=== PATIENT | male | born 1955 | race Caucasian/White ===

== ENCOUNTER 2021-01-12 08:00 | Day surgery (SDC) | payer MEDICARE ==
[2021-01-12] VITALS (10 sets, daily range): BP systolic 103–166; BP diastolic 47–76
[~2021-01-12] VITALS: Ht 172.7 cm; Wt 83.0 kg
[2021-01-12] MEDS ORDERED: CETI10CA19 PO (08:40)
[2021-01-12] MEDS ORDERED: ASCO-139 PO (08:40)
[2021-01-12] MEDS ORDERED: TURM500C4 PO (08:40)
[2021-01-12] MEDS ORDERED: ASPI-1265 PO (08:40)
[2021-01-12] MEDS ORDERED: FLEC100T PO (08:40)
[2021-01-12] MEDS ORDERED: IBUP-2697 PEG (08:40)
[2021-01-12] MEDS ORDERED: LIDOcaine/PRILOcaine 5gm cream TP ONE (08:45)
[2021-01-12] MEDS ORDERED: normal saline 1,000 ML IV SCH (08:45)
[2021-01-12] MEDS ORDERED: diphenhydrAMINE 25mg capsule PO PRN (08:45)
[2021-01-12 09:23] LABS: BASOPHILS % (AUTO) 0.6 % (0-1); EOSINOPHILS # (AUTO) 0.2 X10'3 (0-0.9); EOSINOPHILS % (AUTO) 3.7 % (0-6); HEMATOCRIT 39.3 % (42.0-52.0); HEMOGLOBIN 13.3 g/dl (14.0-17.9); LYMPHOCYTES # (AUTO) 2.3 X10'3 (1.1-4.8); LYMPHOCYTES % (AUTO) 37.6 % (21-51); MEAN CORPUSCULAR HEMOGLOBIN 32.4 PG (27.0-31.0); MEAN CORPUSCULAR VOLUME 95.5 FL (78-98); MEAN PLATELET VOLUME 8.9 FL (7.4-10.4); MONOCYTES # (AUTO) 0.5 X10'3 (0-0.9); MONOCYTES % (AUTO) 8.2 % (2-12); NEUTROPHILS # (AUTO) 3.1 X10'3 (1.8-7.7); NEUTROPHILS % (AUTO) 49.9 % (42-75); PLATELET COUNT 163 X10'3 (140-440); RED BLOOD COUNT 4.11 X10'6 (4.70-6.10); RED CELL DISTRIBUTION WIDTH 13.2 % (11.5-14.5); WHITE BLOOD COUNT 6.2 X10'3 (4.5-11.0)
[2021-01-12 09:48] LABS: ALBUMIN 3.7 G/DL (3.4-5.0); ANION GAP 7 (8-16); BLOOD UREA NITROGEN 16 MG/DL (7-18); BUN/CREATININE RATIO 18.2 (5.4-32.0); CALCIUM 8.8 MG/DL (8.5-10.1); CHLORIDE 107 MMOL/L (99-107); CREATININE 0.88 MG/DL (0.60-1.10); GLUCOSE 109 MG/DL (70-104); MAGNESIUM 2.3 MG/DL (1.5-2.4); POTASSIUM 4.4 MMOL/L (3.5-5.1); SODIUM 144 MMOL/L (135-145); TOTAL CARBON DIOXIDE 29.9 MMOL/L (24-32); eGFR 87 ML/MIN
[2021-01-12] MEDS ORDERED: LIDOcaine 1% (10mg/ml)w/preservative injection 20ml MDV ONE (10:09)
[2021-01-12] MEDS ORDERED: iohexol 350 MG/ML 50ML vial IV ONE (10:09)
[2021-01-12] MEDS ORDERED: iohexol 350MG/ML 100ml bottle IV ONE (10:09)
[2021-01-12] MEDS ORDERED: heparin 1,000unit/ml 10ml vial 10 ML ONE (10:09)
[2021-01-12] MEDS ORDERED: midazolam 1 mg/ML 2ml injection ONE ×2 (10:09→10:49)
[2021-01-12] MEDS ORDERED: fentaNYL/PF 50MCG/1 ML 2ML syringe ONE (10:09)
[2021-01-12] MEDS ORDERED: verapamil 2.5 mg/ml inj IV ONE (10:28)
[2021-01-12] MEDS ORDERED: nitroGLYCERIN-Tridil 50MG/D5W 250 ML IV ONE (10:28)
[2021-01-12] MEDS ORDERED: proCHLORperazine 10 MG/2 ml inj IV PRN (13:00)
[2021-01-12] MEDS ORDERED: acetaminophen 325mg tablet PO PRN (13:00)
[2021-01-12] MEDS ORDERED: OXAZEpam 15mg capsule PO PRN (13:00)
[2021-01-12] MEDS ORDERED: HYDROcodone/acetaminophen 5mg/325mg tablet PO PRN (13:00)
[2021-01-12] MEDS ORDERED: ondansetron/PF 4mg/2ml inj IV PRN (13:00)
[2021-01-12] MEDS ORDERED: HYDROcodone/acetaminophen 10/325mg tab PO PRN (13:00)
== END 2021-01-12 15:00 | disposition home or self-care (01) ==
LOC: SSTAY O 08:00
PROVIDERS: ATTEND Internal Medicine Cardiovascular Disease
DX: R94.39 Abnormal result of other cardiovascular function study (principal); I48.0 Paroxysmal atrial fibrillation; E78.00 Pure hypercholesterolemia, unspecified; I47.1 Supraventricular tachycardia; Z88.8 Allergy status to other drugs, medicaments and biological substances; Z79.899 Other long term (current) drug therapy; Z79.82 Long term (current) use of aspirin
CPT/HCPCS: 36415; 80048; 83735; 85025; 85610; 93005; 93458; 99152; C1769; C1894; J1644; J2001; J2250; J3010; J7030; Q0163; Q9967; 99153; A4620; A5120; A6258; J3490

== ENCOUNTER 2021-02-19 11:18 | Day surgery (SDC) | payer MEDICARE ==
[2021-02-12 16:07] LABS: BASOPHILS # (AUTO) 0.1 X10'3 (0-0.2); BASOPHILS % (AUTO) 0.6 % (0-1); EOSINOPHILS # (AUTO) 0.2 X10'3 (0-0.9); EOSINOPHILS % (AUTO) 1.8 % (0-6); LYMPHOCYTES # (AUTO) 4.1 X10'3 (1.1-4.8); LYMPHOCYTES % (AUTO) 36.9 % (21-51); MEAN CORPUSCULAR HEMOGLOBIN 31.7 PG (27.0-31.0); MEAN CORPUSCULAR HGB CONC 33.9 g/dL (33.0-36.5); MEAN CORPUSCULAR VOLUME 93.6 FL (78-98); MEAN PLATELET VOLUME 8.2 FL (7.4-10.4); MONOCYTES # (AUTO) 0.9 X10'3 (0-0.9); MONOCYTES % (AUTO) 7.6 % (2-12); NEUTROPHILS % (AUTO) 53.1 % (42-75); PRE OP HEMOGLOBIN 15.3 g/dL (14.0-17.9); PRE OP PLATELET COUNT 190 X10'3 (140-440); RED BLOOD COUNT 4.81 X10'6 (4.70-6.10); RED CELL DISTRIBUTION WIDTH 12.8 % (11.5-14.5)
[2021-02-12 16:17] LABS: ALBUMIN/GLOBULIN RATIO 1.1 (1.1-1.5); ALKALINE PHOSPHATASE 47 IU/L (46-116); BLOOD UREA NITROGEN 17 MG/DL (7-18); BUN/CREATININE RATIO 18.7 (5.4-32.0); CALCIUM 8.8 MG/DL (8.5-10.1); CHLORIDE 103 MMOL/L (99-107); CREATININE 0.91 MG/DL (0.60-1.10); PRE OP ALT 55 U/L (30-65); PRE OP ANION GAP 9 (8-16); PRE OP AST 28 U/L (10-37); PRE OP BILIRUB, TOTAL 0.6 MG/DL (0.0-1.0); PRE OP GLUCOSE 95 MG/DL (70-104); PRE OP POTASSIUM 4.2 MMOL/L (3.4-5.1); PRE OP SODIUM 139 MMOL/L (135-145); TOTAL CARBON DIOXIDE 27.3 MMOL/L (24-32); TOTAL PROTEIN 7.6 G/DL (6.4-8.2); eGFR 84 ML/MIN
[2021-02-19] VITALS (7 sets, daily range): BP systolic 128–157; BP diastolic 66–86
[~2021-02-19] VITALS: Ht 172.7 cm; Wt 78.5 kg
[~2021-02-19 11:18] MED LIST: ACET-2615 PO; ASPI-1265 PO; CETI10CA19 PO; FLEC100T PO; cefazolin/dext.iso 2gm/50ml 50 ML IV ONE; famotidine 20mg tablet PO ONE; meperidine/PF 25mg/ml syringe IV PRN; morphine 2 MG/ML inj. syringe IV PRN; morphine 4 MG/ML inj SYRINge IV PRN; ondansetron/PF 4mg/2ml inj IV PRN; proCHLORperazine 10 MG/2 ml inj IV PRN; ringers solution, lacted 1,000 ML IV SCH
[2021-02-19] MEDS ORDERED: BUPIVAcaine/PF 2.5 mg/ml (0.25%) 30ml vial ONE (12:03)
[2021-02-19] MEDS ORDERED: fentaNYL/PF 50MCG/1 ML 2ML syringe ONE (14:14)
[2021-02-19] MEDS ORDERED: midazolam 1 mg/ML 2ml injection ONE (14:15)
[2021-02-19] MEDS ORDERED: ondansetron/PF 4mg/2ml inj ONE (14:21)
[2021-02-19] MEDS ORDERED: propofol inj 20 ML IV ONE (14:21)
[2021-02-19] MEDS ORDERED: LIDOcaine 2% (20mg/ml) 5ml vial ONE (14:21)
[2021-02-19] MEDS ORDERED: dexamethasone sod phosphate 4mg/ml inj. ONE (14:21)
[2021-02-19] MEDS ORDERED: ePHEDrine 50MG/ML INJ. ONE ×2 (14:23→14:27)
[2021-02-19] MEDS ORDERED: 0.9 % SODIUM CHLORIDE 10 ML VIAL ONE (14:41)
[2021-02-19] MEDS ORDERED: morphine 10mg/ml inj. ONE (15:19)
[2021-02-19] MEDS ORDERED: ketorolac trometh. 30mg/ml inj. ONE (15:26)
--- NOTE | 2021-02-19 15:40 | NUR ---
Received from OR via , accompanied by Anesthesiologist DR SANDY and report given by Anesthesiolgist. AWAKENS TO VOICE. VITALS STABLE. DRESSING DI. YARA PAIN. LT FOOT COOL AND PINK.
[2021-02-19] MEDS ORDERED: non-formulary drug (Acetaminophen (Tylenol Extra Strength) 1 TAB) PO PRN (16:05)
--- NOTE | 2021-02-19 16:50 | NUR ---
AWAKE AND ORIENTED. VITALS STABLE. DRESSING DI. YARA PAIN. HOME WITH HIS AT THIS TIME.
[2021-02-19] MEDS ORDERED: flecainide 50mg tablet PO SCH (20:00)
[2021-02-20] MEDS ORDERED: cetirizine 10mg tablet PO SCH (08:00)
[2021-02-20] MEDS ORDERED: aspirin 81mg tab.chew PO SCH (08:00)
== END 2021-02-19 16:50 | disposition home or self-care (01) ==
LOC: PAS 11:18
PROVIDERS: ATTEND Orthopaedic Surgery
DX: S83.242A Other tear of medial meniscus, current injury, left knee, initial encounter (principal); M23.42 Loose body in knee, left knee; M94.262 Chondromalacia, left knee; M19.029 Primary osteoarthritis, unspecified elbow; M17.10 Unilateral primary osteoarthritis, unspecified knee; I48.91 Unspecified atrial fibrillation; Z87.891 Personal history of nicotine dependence; Z98.890 Other specified postprocedural states; Z98.818 Other dental procedure status; Z79.82 Long term (current) use of aspirin; Z79.899 Other long term (current) drug therapy; Z20.822 Contact with and (suspected) exposure to COVID-19; X58.XXXA Exposure to other specified factors, initial encounter; Y93.89 Activity, other specified; Y92.89 Other specified places as the place of occurrence of the external cause; Y99.8 Other external cause status
CPT/HCPCS: 29881; 36415; 71046; 80053; 82948; 85025; J1100; J1885; J2001; J2250; J2270; J2405; J2704; J3010; J3490; U0003; U0005; Z7512; A4618; A6449; A7000; J7120

== ENCOUNTER 2023-03-01 07:53 | Inpatient (IN) | payer MEDICARE ==
[2023-02-22 15:22] LABS: BILIRUBIN,URINE NEGATIVE (Neg); CLARITY,URINE CLEAR (Clear); COLOR,URINE YELLOW (Yellow); GLUCOSE, URINE NEGATIVE (Neg); KETONES,URINE NEGATIVE (Neg); LEUKOCYTE ESTERASE ,URINE NEGATIVE (Neg); NITRITES, URINE NEGATIVE (Neg); OCCULT BLOOD,URINE NEGATIVE (Neg); PH,URINE 5.5 (4.8-8.0); PROTEIN,URINE NEGATIVE (Neg); UROBILINOGEN,URINE 0.2 E.U/dL (0.2-1.0)
[2023-02-22 15:23] LABS: BASOPHILS # (AUTO) 0.1 X10'3 (0-0.2); BASOPHILS % (AUTO) 0.7 % (0-1); EOSINOPHILS # (AUTO) 0.1 X10'3 (0-0.9); EOSINOPHILS % (AUTO) 1.5 % (0-6); LYMPHOCYTES # (AUTO) 3.7 X10'3 (1.1-4.8); LYMPHOCYTES % (AUTO) 38.4 % (21-51); MEAN CORPUSCULAR HEMOGLOBIN 32.3 PG (27.0-31.0); MEAN CORPUSCULAR HGB CONC 33.9 g/dL (33.0-36.5); MEAN CORPUSCULAR VOLUME 95.3 FL (78-98); MEAN PLATELET VOLUME 8.5 FL (7.4-10.4); MONOCYTES # (AUTO) 0.6 X10'3 (0-0.9); MONOCYTES % (AUTO) 6.6 % (2-12); NEUTROPHILS % (AUTO) 52.8 % (42-75); PRE OP HEMATOCRIT 42.6 % (42.0-52.0); PRE OP HEMOGLOBIN 14.4 g/dL (14.0-17.9); PRE OP PLATELET COUNT 187 X10'3 (140-440); PRE OP WHITE BLOOD COUNT 9.5 10'3 (4.8-10.8); RED BLOOD COUNT 4.47 X10'6 (4.70-6.10); RED CELL DISTRIBUTION WIDTH 13.2 % (11.5-14.5)
[2023-02-22 15:26] LABS: UA COLLECTION TYPE CLN CATCH MIDSTREAM
[2023-02-22 15:34] LABS: PRE OP PROTIME 10.3 SECONDS (9.0-12.0)
[2023-02-22 15:39] LABS: ALBUMIN 4.2 G/DL (3.4-5.0); ALBUMIN/GLOBULIN RATIO 1.5 (1.1-1.5); ALKALINE PHOSPHATASE 55 IU/L (46-116); BLOOD UREA NITROGEN 20 MG/DL (7-18); BUN/CREATININE RATIO 24.1 (10.0-20.0); CALCIUM 9.1 MG/DL (8.5-10.1); CHLORIDE 103 MMOL/L (99-107); CREATININE 0.83 MG/DL (0.60-1.10); PRE OP ALT 63 U/L (30-65); PRE OP ANION GAP 9 (8-16); PRE OP AST 36 U/L (10-37); PRE OP BILIRUB, TOTAL 0.3 MG/DL (0.0-1.0); PRE OP GLUCOSE 95 MG/DL (70-104); PRE OP POTASSIUM 4.1 MMOL/L (3.4-5.1); PRE OP SODIUM 138 MMOL/L (135-145); TOTAL CARBON DIOXIDE 26.5 MMOL/L (24-32); eGFR > 90 ML/MIN
[2023-03-01] VITALS (18 sets, daily range): BP systolic 109–161; BP diastolic 57–77; PULSE 51–75; RESP 12–16; TEMP 97.7–98.6; O2SAT 89–98
[~2023-03-01] VITALS: Ht 172.7 cm; Wt 79.4 kg
[~2023-03-01 07:53] MED LIST changes: -ACET-2615 PO; -ASPI-1265 PO; -CETI10CA19 PO; +DICL387C TOP; +EZET10TA6 PO; +NAPR220T67 PO; +cefazolin 2gm/D5W 100mL 100 ML IV ONE; -cefazolin/dext.iso 2gm/50ml 50 ML IV ONE; -meperidine/PF 25mg/ml syringe IV PRN; -morphine 2 MG/ML inj. syringe IV PRN; -morphine 4 MG/ML inj SYRINge IV PRN; -ondansetron/PF 4mg/2ml inj IV PRN; -proCHLORperazine 10 MG/2 ml inj IV PRN; +tranexamic acid inj. 1,000 MG in normal saline IV soln 100ML IV ONE
--- NOTE | 2023-03-01 08:00 | NUR ---
TOTAL JOINT CHARTING: PT COMPLETED HIBICLENS SHOWERS X5 DAYS. MD DOES NOT ORDER MUPIROCIN OINTMENT. CSM'S WNL. RIGHT RADIAL PULSE STRONG. Addendum: 03/01/23 at 0925 by Stefani De RN Amended: Links added.
--- NOTE | 2023-03-01 09:30 | NUR ---
PT RESTING COMFORTABLY WITH AT THE BEDSIDE. IV PATENT. AWAITING SURGERY. PT REPORT GIVEN TO MICHA VERMA WHO ASSUMES PT CARE.
[2023-03-01] MEDS ORDERED: methylene blue (5mg/ml) 50mg/10ml ampul IV ONE ×3 (09:53→11:52)
[2023-03-01] MEDS ORDERED: vancomycin 1,000mg inj ONE (09:53)
[2023-03-01] MEDS ORDERED: bisacodyl 10mg suppository rectal RC PRN (10:00)
[2023-03-01] MEDS ORDERED: naloxone 0.4 mg/ml inj IV PRN (10:00)
[2023-03-01] MEDS ORDERED: acetaminophen 325mg tablet PO PRN (10:00)
[2023-03-01] MEDS ORDERED: magnesium hydroxide 30ml (MOM) UD suspension PO PRN (10:00)
[2023-03-01] MEDS ORDERED: diphenhydrAMINE 25mg capsule PO PRN (10:00)
[2023-03-01] MEDS ORDERED: ondansetron/PF 4mg/2ml inj IV PRN ×2 (10:00→10:20)
[2023-03-01] MEDS ORDERED: HYDROcodone/acetaminophen 10/325mg tab PO PRN ×2 (10:00)
[2023-03-01] MEDS ORDERED: fentaNYL/PF 50MCG/1 ML 2ML syringe ONE (10:16)
[2023-03-01] MEDS ORDERED: midazolam 1 mg/ML 2ml injection ONE (10:16)
[2023-03-01] MEDS ORDERED: propofol inj 20 ML IV ONE (10:17)
[2023-03-01] MEDS ORDERED: LIDOcaine 2% (20mg/ml) 5ml vial ONE (10:17)
[2023-03-01] MEDS ORDERED: dexamethasone sod phosphate 4mg/ml inj. ONE (10:17)
[2023-03-01] MEDS ORDERED: ROPIVAcaine 0.5% (5mg/ml) 30ml vial ONE (10:18)
[2023-03-01] MEDS ORDERED: acetaminophen 1,000mg/100ml IV 100 ML IV ONE (10:18)
[2023-03-01] MEDS ORDERED: morphine 2 MG/ML inj. syringe IV PRN (10:20)
[2023-03-01] MEDS ORDERED: ringers solution, lacted 1,000 ML IV SCH (10:20)
[2023-03-01] MEDS ORDERED: labetalol 20mg/4ml (5mg/ml) syringe IV PRN (10:20)
[2023-03-01] MEDS ORDERED: fentaNYL/PF 50MCG/1 ML 2ML syringe IV PRN ×2 (10:20)
[2023-03-01] MEDS ORDERED: hydrALAZINE 20mg/ml inj. IV PRN (10:20)
[2023-03-01] MEDS ORDERED: morphine 4 MG/ML inj SYRINge IV PRN (10:20)
[2023-03-01] MEDS ORDERED: sevoflurane 250ml liquid IH ONE (10:25)
[2023-03-01] MEDS ORDERED: ondansetron/PF 4mg/2ml inj ONE (10:25)
[2023-03-01] MEDS ORDERED: ePHEDrine 50MG/ML INJ. ONE (10:37)
[2023-03-01] MEDS ORDERED: vancomycin 1,000mg inj IVT ONE (11:17)
--- NOTE | 2023-03-01 13:15 | NUR ---
Received from OR via HOSPITAL BED, accompanied by Anesthesiologist DR. LITTLE and report given by Anesthesiolgist. LEFT FA 20PIV WITH FLUIDS INFUSING PER ORDERS. DENIES PAIN. ABLE TO WIGGLE RIGHT FINGERS. RIGHT SHOULDER WITH ISLAND DRESSING WITH DELVALLE SLEEVE, POWDER PACK AND SLING.
--- NOTE | 2023-03-01 15:00 | NUR ---
PATIENT TRANSFERRED TO PAS UNIT ALONG WITH BELONGINGS AND UNTIL ROOM IS AVAILABLE IN THE HOSPITAL. DENIES PAIN. WIGGLES RIGHT HAND FINGERS, STILL "NUMB". DRESSING TO RIGHT SHOULDER CDI.
--- NOTE | 2023-03-01 15:30 | NUR ---
RECEIVED PT FROM PACU-PT AWAKE VSS, AT BEDSIDE, DENIES PAIN, AGREE WITH PRIOR ASSESSMENT.
--- NOTE | 2023-03-01 16:00 | NUR ---
pt vitals are stable and set up for post of vitals, pt report given to LUCI Tracy
--- NOTE | 2023-03-01 16:45 | NUR ---
PT DOING WELL, AMBULATED TO BATHROOM, VSS, DENIES PAIN, ASSESSMENT UNCHANGED,REPORT CALLED TO NURSE-ALL QUESTIONS ANSWERED, TAKEN WITH BELONGINGS TO ROOM, BED LOW AND LOCKED, CALL LIGHT IN REACH. NURSE IN TO RECEIVE PT.
--- NOTE | 2023-03-01 16:50 | NUR ---
PT WAS TAKEN UP TO BE PUT IN ROOM 4022A-UPON ARRIVAL THERE WAS MISCOMMUNICATION REGARDING APPROPRIATENESS OF PT ASSIGNMENT, DISCUSSION ENSUED IN THE HALLWAY WITH PT AND PRESENT, RN LEFT PT IN THE HALLWAY WITH LOCK SETTER TO DETERMINE ASSIGNMENT PLACEMENT.
--- NOTE | 2023-03-01 17:00 | NUR ---
Received pt report from LUCI Navas in recovery
--- NOTE | 2023-03-01 17:30 | NUR ---
Received patient from recovery and took/documented patients vitals signs, pt is stable and in no distress. Fluids running per md orders, BLL, call light within reach, x2SR and will be handed off to night nurse at 1800 and I will document who is taking over patient care.
--- NOTE | 2023-03-01 18:00 | NUR ---
Problems reprioritized. Patient report given, questions answered & plan of care reviewed with LUCI Tracy.
--- NOTE | 2023-03-01 19:00 | NUR ---
Received report from Faby VERMA.
--- NOTE | 2023-03-01 19:00 | NUR ---
Post op vitals started at 1600 per notes, pt was in pacu for awhile recovering.
[2023-03-01] MEDS: cefazolin 2gm/D5W 100mL 100 ML IV SCH (20:09)
[2023-03-01] MEDS ORDERED: naproxen sodium 220mg tablet PO PRN (20:10)
[2023-03-01] MEDS: potassium cl 20mEq in 1/2 NS 1,000 ML IV SCH (20:14)
[2023-03-01] MEDS ORDERED: ezetimibe 10mg tablet PO SCH (21:00)
[2023-03-01] MEDS: flecainide 50mg tablet PO SCH (22:26)
[2023-03-02] MEDS: cefazolin 2gm/D5W 100mL 100 ML IV SCH (00:43)
[2023-03-02 02:00] VITALS: BP 111/54; PULSE 58; RESP 16; TEMP 96.7; O2SAT 95
[2023-03-02] MEDS: potassium cl 20mEq in 1/2 NS 1,000 ML IV SCH (05:09)
[2023-03-02 06:00] VITALS: BP 100/59; PULSE 63; RESP 18; TEMP 96.8; O2SAT 96
--- NOTE | 2023-03-02 06:10 | NUR ---
Report to Karla VERMA.
--- NOTE | 2023-03-02 06:20 | NUR ---
received report from maral yarbrough
[2023-03-02 07:01] LABS: BASOPHILS % (AUTO) 0.1 % (0-1); EOSINOPHILS % (AUTO) 0.2 % (0-6); HEMATOCRIT 37.2 % (42.0-52.0); HEMOGLOBIN 12.5 g/dl (14.0-17.9); LYMPHOCYTES % (AUTO) 13.6 % (21-51); MEAN CORPUSCULAR HEMOGLOBIN 31.9 PG (27.0-31.0); MEAN CORPUSCULAR HGB CONC 33.6 g/dL (33.0-36.5); MEAN CORPUSCULAR VOLUME 94.9 FL (78-98); MEAN PLATELET VOLUME 8.9 FL (7.4-10.4); MONOCYTES # (AUTO) 1.4 X10'3 (0-0.9); MONOCYTES % (AUTO) 9.6 % (2-12); NEUTROPHILS # (AUTO) 11.3 X10'3 (1.8-7.7); NEUTROPHILS % (AUTO) 76.5 % (42-75); PLATELET COUNT 157 X10'3 (140-440); RED BLOOD COUNT 3.91 X10'6 (4.70-6.10); RED CELL DISTRIBUTION WIDTH 12.8 % (11.5-14.5); WHITE BLOOD COUNT 14.7 X10'3 (4.5-11.0)
[2023-03-02 07:14] LABS: ANION GAP 7 (8-16); CHLORIDE 104 MMOL/L (99-107); POTASSIUM 4.1 MMOL/L (3.5-5.1); SODIUM 139 MMOL/L (135-145)
[2023-03-02] MEDS: flecainide 50mg tablet PO SCH (07:30)
[2023-03-02] MEDS ORDERED: [UNRECOGNIZED DRUG - OTHER] TOP PRN (08:00)
[2023-03-02] MEDS ORDERED: DICLOFENAC TOP PRN (08:00)
--- NOTE | 2023-03-02 09:54 | NUR ---
Per EMR pt POD #1 s/p right TSA. Written high protein education with ONS coupons and RD contact information mailed to patient's address found in EMR d/t short staffing. Will continue to follow and provide verbal education as able. Addendum: 03/02/23 at [address] Amended: Links added.
[2023-03-02 10:00] VITALS: BP 114/45; PULSE 65; RESP 16; TEMP 98.4; O2SAT 96
[2023-03-02] MEDS ORDERED: HYDR-3973 PO (13:54)
== END 2023-03-02 13:40 | disposition home or self-care (01) | DRG 483 ==
LOC: PAS IN 07:53 → ORTHO 4S 17:05
PROVIDERS: ADMIT Specialist; ATTEND Specialist
PROC: 3E0T3BZ Introduction of Anesthetic Agent into Peripheral Nerves and Plexi, Percutaneous Approach (ICD-10-PCS; 2023-03-01)
PROC: 3E0T33Z Introduction of Anti-inflammatory into Peripheral Nerves and Plexi, Percutaneous Approach (ICD-10-PCS; 2023-03-01)
PROC: 0RRJ0JZ Replacement of Right Shoulder Joint with Synthetic Substitute, Open Approach (ICD-10-PCS; principal; 2023-03-01 10:25)
DX: M19.011 Primary osteoarthritis, right shoulder (principal); E78.5 Hyperlipidemia, unspecified; I48.91 Unspecified atrial fibrillation; Z87.891 Personal history of nicotine dependence; Z90.49 Acquired absence of other specified parts of digestive tract
CPT/HCPCS: 36415; 73030; 76000; 80051; 80053; 81003; 82948; 85025; 85610; 85730; 86885; 86900; 86901; 87081; 97110; 97161; 97760; A4565; A4618; A6258; A6449; A6455; A7000; C1713; C1776; G0378; J0131; J0690; J1100; J2250; J2405; J2704; J2795; J3010; J3370; J3480; J3490; J7120; Q9968

== ENCOUNTER 2024-05-07 07:49 | Observation (INO) | payer MEDICARE ==
[2024-04-30 10:18] LABS: BILIRUBIN,URINE NEGATIVE (Neg); CLARITY,URINE CLEAR (Clear); COLOR,URINE YELLOW (Yellow); GLUCOSE, URINE NEGATIVE (Neg); KETONES,URINE NEGATIVE (Neg); LEUKOCYTE ESTERASE ,URINE NEGATIVE (Neg); NITRITES, URINE NEGATIVE (Neg); OCCULT BLOOD,URINE NEGATIVE (Neg); PROTEIN,URINE NEGATIVE (Neg); UROBILINOGEN,URINE 0.2 E.U/dL (0.2-1.0)
[2024-04-30 10:25] LABS: BASOPHILS % (AUTO) 0.4 % (0-1); EOSINOPHILS # (AUTO) 0.1 X10'3 (0-0.9); EOSINOPHILS % (AUTO) 1.1 % (0-6); LYMPHOCYTES # (AUTO) 3.9 X10'3 (1.1-4.8); LYMPHOCYTES % (AUTO) 45.6 % (21-51); MEAN CORPUSCULAR HEMOGLOBIN 31.6 PG (27.0-31.0); MEAN CORPUSCULAR VOLUME 92.8 FL (78-98); MEAN PLATELET VOLUME 7.7 FL (7.4-10.4); MONOCYTES # (AUTO) 0.5 X10'3 (0-0.9); MONOCYTES % (AUTO) 6.4 % (2-12); NEUTROPHILS % (AUTO) 46.5 % (42-75); PRE OP HEMATOCRIT 42.4 % (42.0-52.0); PRE OP HEMOGLOBIN 14.4 g/dL (14.0-17.9); PRE OP PLATELET COUNT 202 X10'3 (140-440); PRE OP WHITE BLOOD COUNT 8.6 10'3 (4.8-10.8); RED BLOOD COUNT 4.57 X10'6 (4.70-6.10)
[2024-04-30 10:26] LABS: UA COLLECTION TYPE CLN CATCH MIDSTREAM
[2024-04-30 10:35] LABS: PRE OP PROTIME 10.6 SECONDS (9.0-12.0)
[2024-04-30 10:36] LABS: ALBUMIN/GLOBULIN RATIO 1.3 (1.1-1.5); ALKALINE PHOSPHATASE 52 IU/L (46-116); BLOOD UREA NITROGEN 18 MG/DL (7-18); CHLORIDE 104 MMOL/L (99-107); PRE OP ALT 36 U/L (30-65); PRE OP ANION GAP 6 (8-16); PRE OP AST 24 U/L (10-37); PRE OP BILIRUB, TOTAL 0.6 MG/DL (0.0-1.0); PRE OP GLUCOSE 93 MG/DL (70-104); PRE OP POTASSIUM 4.1 MMOL/L (3.4-5.1); PRE OP SODIUM 141 MMOL/L (135-145); TOTAL CARBON DIOXIDE 30.9 MMOL/L (24-32); eGFR 84 ML/MIN
[~2024-05-07] VITALS: Ht 172.7 cm; Wt 77.3 kg
[2024-05-07] VITALS (31 sets, daily range): BP systolic 91–139; BP diastolic 41–80; PULSE 60–72; RESP 9–17; TEMP 96.9–97.9; O2SAT 93–97
[~2024-05-07 07:49] MED LIST changes: -DICL387C TOP; -NAPR220T67 PO; -cefazolin 2gm/D5W 100mL 100 ML IV ONE; -famotidine 20mg tablet PO ONE; +methylene blue (5mg/ml) 50mg/10ml ampul IV ONE; -ringers solution, lacted 1,000 ML IV SCH; +tranexamic acid 100mg/ml inj. ONE; -tranexamic acid inj. 1,000 MG in normal saline IV soln 100ML IV ONE; +vancomycin 1,000mg inj ONE
[2024-05-07] MEDS ORDERED: hydrALAZINE 20mg/ml inj. IV PRN (08:45)
[2024-05-07] MEDS ORDERED: fentaNYL/PF 50MCG/1 ML 2ML syringe IV PRN ×2 (08:45)
[2024-05-07] MEDS ORDERED: ondansetron/PF 4mg/2ml inj IV PRN ×2 (08:45→11:10)
[2024-05-07] MEDS ORDERED: morphine 2 MG/ML inj. syringe IV PRN (08:45)
[2024-05-07] MEDS ORDERED: morphine 4 MG/ML inj SYRINge IV PRN (08:45)
[2024-05-07] MEDS ORDERED: labetalol 20mg/4ml (5mg/ml) syringe IV PRN (08:45)
[2024-05-07] MEDS: famotidine 20mg tablet PO ONE (09:05)
[2024-05-07] MEDS: ringers solution, lacted 1,000 ML IV SCH ×2 (09:06→19:41)
[2024-05-07] MEDS ORDERED: Thrombin (Bovine) 5,000 unit vial TP ONE (10:03)
[2024-05-07] MEDS ORDERED: sevoflurane 250ml liquid IH ONE (11:05)
[2024-05-07] MEDS ORDERED: magnesium hydroxide 30ml (MOM) UD suspension PO PRN (11:10)
[2024-05-07] MEDS ORDERED: diphenhydrAMINE 25mg capsule PO PRN (11:10)
[2024-05-07] MEDS ORDERED: bisacodyl 10mg suppository rectal RC PRN (11:10)
[2024-05-07] MEDS ORDERED: naloxone 0.4 mg/ml inj IV PRN (11:10)
[2024-05-07] MEDS ORDERED: acetaminophen 325mg tablet PO PRN (11:10)
[2024-05-07] MEDS ORDERED: fentaNYL/PF 50MCG/1 ML 2ML syringe ONE (11:12)
[2024-05-07] MEDS ORDERED: midazolam 1 mg/ML 2ml injection ONE (11:13)
[2024-05-07] MEDS ORDERED: acetaminophen 1,000mg/100ml IV 100 ML IV ONE (11:38)
[2024-05-07] MEDS ORDERED: acetaminophen 1,000mg/100ml IV 0 ML IV ONE (11:38)
[2024-05-07] MEDS ORDERED: propofol inj 20 ML IV ONE (11:41)
[2024-05-07] MEDS ORDERED: ePHEDrine 50MG/ML INJ. ONE (11:41)
[2024-05-07] MEDS ORDERED: LIDOcaine 2% (20mg/ml) 5ml vial ONE (11:42)
[2024-05-07] MEDS ORDERED: ondansetron/PF 4mg/2ml inj ONE (11:42)
[2024-05-07] MEDS ORDERED: ROPIVAcaine 0.5% (5mg/ml) 30ml vial ONE (13:16)
[2024-05-07] MEDS ORDERED: ketorolac trometh 30MG/ML vial 30 MG/ML VIAL ONE (13:36)
[2024-05-07] MEDS ORDERED: ceFAZolin 2gm in dextrose, iso 50 ML IV SCH (16:00)
[2024-05-07] MEDS: potassium cl 20mEq in 1/2 NS 1,000 ML IV SCH (17:55)
[2024-05-07] MEDS: ceFAZolin 2gm in dextrose, iso 50 ML IV ONE (19:40)
[2024-05-07] MEDS: tranexamic acid 1gm/0.7% sal. 100 ML IV ONE (19:41)
[2024-05-07] MEDS: ezetimibe 10mg tablet PO SCH (20:46)
[2024-05-07] MEDS: flecainide 50mg tablet PO SCH (20:47)
[2024-05-07] MEDS: ceFAZolin 2gm in dextrose, iso 50 ML IV SCH (21:31)
[2024-05-08 05:58] LABS: BASOPHILS % (AUTO) 0.1 % (0-1); EOSINOPHILS # (AUTO) 0.1 X10'3 (0-0.9); EOSINOPHILS % (AUTO) 0.5 % (0-6); HEMATOCRIT 34.1 % (42.0-52.0); HEMOGLOBIN 11.6 g/dl (14.0-17.9); LYMPHOCYTES # (AUTO) 2.3 X10'3 (1.1-4.8); LYMPHOCYTES % (AUTO) 17.1 % (21-51); MEAN CORPUSCULAR VOLUME 93.9 FL (78-98); MEAN PLATELET VOLUME 8.3 FL (7.4-10.4); MONOCYTES % (AUTO) 7.9 % (2-12); NEUTROPHILS # (AUTO) 9.8 X10'3 (1.8-7.7); NEUTROPHILS % (AUTO) 74.4 % (42-75); PLATELET COUNT 163 X10'3 (140-440); RED BLOOD COUNT 3.64 X10'6 (4.70-6.10); RED CELL DISTRIBUTION WIDTH 13.1 % (11.5-14.5); WHITE BLOOD COUNT 13.2 X10'3 (4.5-11.0)
[2024-05-08] MEDS: HYDROcodone/acetaminophen 5mg/325mg tablet PO PRN ×2 (06:08→10:10)
[2024-05-08 07:05] LABS: ALANINE AMINOTRANSFERASE 16 U/L (12-78); ALBUMIN 3.1 G/DL (3.4-5.0); ALBUMIN/GLOBULIN RATIO 1.1 (1.1-1.5); ALKALINE PHOSPHATASE 42 IU/L (46-116); ANION GAP 8 (8-16); ASPARTATE AMINO TRANSFERASE 23 U/L (10-37); BILIRUBIN,TOTAL 0.4 MG/DL (0.1-1.0); BLOOD UREA NITROGEN 20 MG/DL (7-18); CALCIUM 8.3 MG/DL (8.5-10.1); CHLORIDE 106 MMOL/L (99-107); GLUCOSE 107 MG/DL (70-104); POTASSIUM 4.2 MMOL/L (3.5-5.1); SODIUM 139 MMOL/L (135-145); TOTAL CARBON DIOXIDE 24.8 MMOL/L (24-32); TOTAL PROTEIN 5.9 G/DL (6.4-8.2); eCRCL 84 ML/MIN; eGFR > 90 ML/MIN
[2024-05-08 08:00] VITALS: RESP 16; O2SAT 98
[2024-05-08] MEDS: aspirin 325mg tablet PO SCH (08:38)
[2024-05-08 10:10] VITALS: RESP 16
== END 2024-05-08 12:43 | disposition home or self-care (01) ==
LOC: PRE-OP 07:49 → ORTHO 4S 10:00
PROVIDERS: ADMIT Specialist; ATTEND Specialist
DX: M75.22 Bicipital tendinitis, left shoulder (principal); M19.012 Primary osteoarthritis, left shoulder; G89.18 Other acute postprocedural pain; E78.5 Hyperlipidemia, unspecified; Z79.899 Other long term (current) drug therapy; Z86.2 Personal history of diseases of the blood and blood-forming organs and certain disorders involving the immune mechanism
CPT/HCPCS: 23430; 23472; 64450; 71046; 73030; 80053; 81003; 82948; 85610; 85730; 86885; 86900; 86901; 93005; 96365; 96366; A4565; A4618; A7000; C1776; G0378; J0330; J0690; J2371; J3480; J3490; J7120; 36415; 76000; 85025; 87081; A6449; A6455; C1713; J0131; J1100; J1885; J2003; J2250; J2405; J2704; J2795; J3010; J3370; Q9968